=== PATIENT | male | born 1955 | race African-American/Black ===

== ENCOUNTER 2017-06-10 13:05 | Emergency (ER) | payer MEDICAID, OTHER ==
[~2017-06-10] VITALS: Ht 182.9 cm; Wt 85.0 kg
[~2017-06-10 13:05] MED LIST: ASPI81TA11 PO; LORTA5 PO; PERC5TAB12 PO
[2017-06-10] MEDS ORDERED: DIPHTH/TETANUS/ACEL PERTUSSIS (BOOSTER) 0.5 ML VIAL/PFS IM ONE ×2 (13:13→13:14)
[2017-06-10] MEDS ORDERED: SODIUM CHLORIDE 0.9% FLUSH 10 ML FLUSH IVF PRN (13:15)
[2017-06-10 13:21] VITALS: O2SAT 100
--- NOTE | 2017-06-10 13:27 | RADRPT ---
EXAM DATE/TIME: 06/10/2017 13:15 [facility] COMPARISON: CHEST SINGLE AP, February 08, 2016, 10:20. INDICATIONS : Trauma alert, fall off roof. MEDICAL HISTORY : None. SURGICAL HISTORY : None. ENCOUNTER: Initial ACUITY: 1 day PAIN SCORE: 0/10 LOCATION: Bilateral chest FINDINGS: A single view of the chest demonstrates the lungs to be symmetrically aerated without evidence of mas s, infiltrate or effusion. The cardiomediastinal contours are unremarkable. Osseous structures are intact. CONCLUSION: No acute disease. Jeremiah Byrne MD on June 10, 2017 at 13:25 Board Certified Radiologist. This report was verified electronically.
[2017-06-10 13:35] LABS: AUTOMATED NEUTROPHIL # 6.3 TH/MM3 (1.8-7.7); BASOPHIL % 0.5 % (0.0-2.0); EOSINOPHIL # 0.1 TH/MM3 (0-0.4); HEMATOCRIT 41.1 % (39.0-51.0); HEMOGLOBIN 14.2 GM/DL (13.0-17.0); LYMPH % 24.5 % (9.0-44.0); LYMPHOCYTE # 2.4 TH/MM3 (1.0-4.8); MEAN CELL VOLUME 93.9 FL (80.0-100.0); MEAN CORPUSCULAR HEMOGLOBIN 32.4 PG (27.0-34.0); MEAN CORPUSCULAR HGB CONC 34.5 % (32.0-36.0); MEAN PLATELET VOLUME 7.1 FL (7.0-11.0); MONO % 8.2 % (0.0-8.0); MONOCYTE # 0.8 TH/MM3 (0-0.9); NEUT % 65.8 % (16.0-70.0); PLATELET COUNT 406 TH/MM3 (150-450); RED BLOOD COUNT 4.38 MIL/MM3 (4.50-5.90); RED CELL DISTRIBUTION WIDTH 14.2 % (11.6-17.2); WHITE BLOOD COUNT 9.6 TH/MM3 (4.0-11.0)
--- NOTE | 2017-06-10 13:35 | RADRPT ---
EXAM DATE/TIME: 06/10/2017 13:15 [facility] COMPARISON: PELVIS AP ONLY, February 08, 2016, 10:18. INDICATIONS : Trauma alert, fall off roof. MEDICAL HISTORY : None. SURGICAL HISTORY : None. ENCOUNTER: Initial ACUITY: 1 day PAIN SCORE: 0/10 LOCATION: Bilateral pelvis FINDINGS: A single frontal view of the pelvis demonstrates no evidence of fracture. The bony pelvic ring is in tact. Bony mineralization is normal. The soft tissues are intact. CONCLUSION: No acute disease. Jeremiah Byrne MD on June 10, 2017 at 13:32 Board Certified Radiologist. This report was verified electronically.
[2017-06-10 13:48] LABS: PROTHROMBIN TIME - PATIENT 10.1 SEC (9.8-11.6)
[2017-06-10 14:00] VITALS: BP 136/82; PULSE 63; RESP 18; O2SAT 96
--- NOTE | 2017-06-10 14:06 | RADRPT ---
EXAM DATE/TIME: 06/10/2017 13:24 [facility] COMPARISON: No previous studies available for comparison. INDICATIONS : Trauma Alert- head pain due to fall off ladder. RADIATION DOSE: 55.53 CTDIvol (mGy) MEDICAL HISTORY : Unknown. SURGICAL HISTORY : Unknown. ENCOUNTER: Initial ACUITY: 1 day PAIN SCALE: 8/10 LOCATION: Bilateral cranial TECHNIQUE: Multiple contiguous axial images were obtained of the head. Using automated exposure control and adj ustment of the mA and/or kV according to patient size, radiation dose was kept as low as reasonably a chievable to obtain optimal diagnostic quality images. DICOM format image data is available electro nically for review and comparison. FINDINGS: CEREBRUM: The ventricles are normal for age. No evidence of midline shift, mass lesion, hemorrhage or acute in farction. No extra-axial fluid collections are seen. POSTERIOR FOSSA: The cerebellum and brainstem are intact. The 4th ventricle is midline. The cerebellopontine angle i s unremarkable. EXTRACRANIAL: The visualized portion of the orbits is intact. SKULL: The calvaria is intact. No evidence of skull fracture. CONCLUSION: Negative exam. No acute intracranial trauma or fracture.. Emil Rashid MD on June 10, 2017 at 14:02 Board Certified Radiologist. This report was verified electronically.
--- NOTE | 2017-06-10 14:08 | RADRPT ---
EXAM DATE/TIME: 06/10/2017 13:24 [facility] COMPARISON: No previous studies available for comparison. INDICATIONS : Trauma Alert- neck pain due to fall off ladder. RADIATION DOSE: 20.12 CTDIvol (mGy) MEDICAL HISTORY : None SURGICAL HISTORY : None. ENCOUNTER: Initial ACUITY: 1 day PAIN SCALE: 7/10 LOCATION: Bilateral neck region. TECHNIQUE: Volumetric scanning of the cervical spine was performed. Multiplanar reconstructions in the sagittal, coronal and oblique axial planes were performed. Using automated exposure control and adjustment o f the mA and/or kV according to patient size, radiation dose was kept as low as reasonably achievable to obtain optimal diagnostic quality images. DICOM format image data is available electronically f or review and comparison. FINDINGS: Sagittal and coronal reconstructions show normal flow-limiting disease from C4-5 through C6-7 some lo ss of disc height and predominantly anteriorly directed marginal spurs. Vertebral body heights are ma intained without fracture or listhesis. Spinal canal is widely patent. C2-C3: The bony spinal canal is normal in size. No evidence of disc bulge or herniation. The neural forami na are bilaterally patent. C3-C4: The bony spinal canal is normal in size. No evidence of disc bulge or herniation. The neural forami na are bilaterally patent. C4-C5: The bony spinal canal is normal in size. No evidence of disc bulge or herniation. The neural forami na are bilaterally patent. C5-C6: The bony spinal canal is normal in size. No evidence of disc bulge or herniation. The neural forami na are bilaterally patent. C6-C7: The bony spinal canal is normal in size. No evidence of disc bulge or herniation. The neural forami na are bilaterally patent. C7-T1: The bony spinal canal is normal in size. No evidence of disc bulge or herniation. The neural forami na are bilaterally patent. CONCLUSION: 1. Degenerative disc disease from C4-5 through C6 with loss of height and predominantly anteriorly di rected marginal spurs. 2. No fracture or listhesis. Spinal canal and neural foramina appear to be adequate throughout. Emil Rashid MD on June 10, 2017 at 14:04 Board Certified Radiologist. This report was verified electronically.
--- NOTE | 2017-06-10 14:13 | RADRPT ---
EXAM DATE/TIME: 06/10/2017 13:24 [facility] COMPARISON: No previous studies available for comparison. INDICATIONS : Trauma Alert- Nasal region pain due to fall off ladder. RADIATION DOSE: 64.35 CTDIvol (mGy) MEDICAL HISTORY : None SURGICAL HISTORY : None. ENCOUNTER: Initial ACUITY: 1 day PAIN SCORE: 9/10 LOCATION: Bilateral nasal. TECHNIQUE: Volumetric scanning of the facial bones was performed. Using automated exposure control and adjustme nt of the mA and/or kV according to patient size, radiation dose was kept as low as reasonably achiev able to obtain optimal diagnostic quality images. DICOM format image data is available electronicall y for review and comparison. FINDINGS: ORBITS: The orbital and infraorbital osseous structures are intact. The retroconal structures have a normal configuration. No radiopaque foreign bodies are seen. NASAL BONE: There may be a very small depressed fracture at the right para midline tip of the nasal bridge. Nasal bones are otherwise intact. ZYGOMATIC ARCHES: Symmetric without evidence of fracture. SINUSES: The maxillary, ethmoid and frontal sinuses are intact. No air-fluid levels seen. NASAL CAVITY: The nasal septum is intact and midline. The lacrimal ducts are intact. SOFT TISSUES: No radiopaque foreign bodies seen. No soft-tissue swelling is seen. INTRACRANIAL: No intracranial air seen. CRIBIFORM PLATE: Grossly intact. MISCELLANEOUS: Impacted left maxillary wisdom tooth crown and roots extending up into the base of the left maxillary antra. 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 CONCLUSION: 1. Possible punctate, depressed fracture through the inferior aspect of the right nasal bridge/ala. O sseous structures are otherwise intact 2. Impacted left maxillary wisdom teeth. 3. Multiple fractured teeth in the maxilla with a dentigerous cyst surrounding the root of what I bel ieve is the first bicuspid on the right. Emil Rashid MD on June 10, 2017 at 14:06 Board Certified Radiologist. This report was verified electronically.
--- NOTE | 2017-06-10 14:22 | RADRPT ---
EXAM DATE/TIME: 06/10/2017 13:31 [facility] COMPARISON: CT ABDOMEN & PELVIS W/O CONTRAST, February 08, 2016, 10:26. INDICATIONS : Trauma Alert- Lower hip pain due to fall off ladder. ORAL CONTRAST: No oral contrast ingested. RADIATION DOSE: 14.41 CTDIvol (mGy) ; Combined studies - Thorax/Abdomen/Pelvis MEDICAL HISTORY : None SURGICAL HISTORY : None. ENCOUNTER: Initial ACUITY: 1 day PAIN SCALE: 10/10 LOCATION: Left hip region. TECHNIQUE: Volumetric scanning of the abdomen and pelvis was performed. Using automated exposure control and ad justment of the mA and/or kV according to patient size, radiation dose was kept as low as reasonably achievable to obtain optimal diagnostic quality images. DICOM format image data is available electro nically for review and comparison. FINDINGS: LOWER LUNGS: The visualized lower lungs are clear. LIVER: Homogeneous density without lesion. There is no dilation of the biliary tree. No calcified gallston es. SPLEEN: Normal size without lesion. PANCREAS: Within normal limits. KIDNEYS: Normal in size and shape. There is no mass, stone, or hydronephrosis. ADRENAL GLANDS: Within normal limits. VASCULAR: There is no aortic aneurysm. BOWEL/MESENTERY: The stomach, small bowel, and colon demonstrate no acute abnormality. There is no free intraperitone al air or fluid. ABDOMINAL WALL: Within normal limits. RETROPERITONEUM: There is no lymphadenopathy. BLADDER: Distention of the urinary bladder. REPRODUCTIVE: Within normal limits. INGUINAL: There is no lymphadenopathy or hernia. MUSCULOSKELETAL: Old compression fracture superior plate of L1. Marked degenerative disc disease at L4-5 with endplate sclerosis. No acute osseous injury. CONCLUSION: 1. No acute fracture. 2. Old compression fractures of superior plate of L1 with degenerative disc disease at L4-5, loss of disc height and endplate sclerosis. 3. Distention of the urinary bladder. 4. No acute intraperitoneal or pelvic visceral trauma. Emil Rashid MD on June 10, 2017 at 14:15 Board Certified Radiologist. This report was verified electronically.
--- NOTE | 2017-06-10 14:27 | RADRPT ---
EXAM DATE/TIME: 06/10/2017 13:31 [facility] COMPARISON: No previous studies available for comparison. INDICATIONS : Trauma Alert- Chest pains due to fall off ladder. RADIATION DOSE: 14.41 CTDIvol (mGy) ; Combined studies - Thorax/Abdomen/Pelvis MEDICAL HISTORY : None SURGICAL HISTORY : None. ENCOUNTER: Initial ACUITY: 1 day PAIN SCALE: 6/10 LOCATION: Left chest TECHNIQUE: Volumetric scanning of the chest was performed. Using automated exposure control and adjustment of t he mA and/or kV according to patient size, radiation dose was kept as low as reasonably achievable to obtain optimal diagnostic quality images. DICOM format image data is available electronically for r eview and comparison. Follow-up recommendations for detected pulmonary nodules are based at a minimum on nodule size and pa tient risk factors according to Fleischner Society Guidelines. FINDINGS: LUNGS: There is no consolidation or pneumothorax. No concerning pulmonary nodule is visualized. Minimal bib asilar dependent atelectatic changes. PLEURAE: There is no pleural thickening or pleural effusion. MEDIASTINUM: Limited visualization of the mediastinal structures without IV contrast. No mediastinal hematoma iden tified. The proximal descending thoracic aorta is aneurysmal at 4.1 cm. There is no mediastinal or h ilar lymphadenopathy. AXILLAE: Within normal limits. No lymphadenopathy. MUSCULOSKELETAL: Within normal limits for patient age. MISCELLANEOUS: The visualized upper abdominal organs demonstrate no acute abnormality. CONCLUSION: 1. No acute fracture. 2. Limited visualization of the mediastinal structures without IV contrast. No mediastinal hematoma. 3. Proximal descending thoracic aorta is mildly aneurysmal at 4.1 cm. 4. Except for some minimal dependent atelectatic changes, the lungs are clear. Emil Rashid MD on June 10, 2017 at 14:20 Board Certified Radiologist. This report was verified electronically.
[2017-06-10] MEDS ORDERED: LIDOCAINE 1%/EPINEPHrine 1:100,000 SOLN 20 ML VIAL INFIL ONE (14:30)
--- NOTE | 2017-06-10 15:29 | PD ---
HPI Chief Complaint: Fall Time Seen by Provider: 13:08 Travel History International Travel<30 days: No Contact w/Intl Traveler<30days: No Traveled to known affect area: No History of Present Illness HPI 61 y/o male presents status post fall off a roof. He had loss of consciousness. He states he landed on an ac compressor fpc down. He sustained lacerations to his face. He states he has pain kind all over. He denies being on any blood thinner medications. He denies any other concurrent complaints. He presents through triage. PFSH Past Medical History Hx Anticoagulant Therapy: No Cancer: No Cardiovascular Problems: Yes (PT STATES HE HAS HAD 2 HEART ATTACKS) Diabetes: No Diminished Hearing: No Glaucoma: No Hepatitis: No Hiatal Hernia: No Hypertension: No Medical other: Yes (ANEURYSM ) Respiratory: No Immunizations Current: No Myocardial Infarction: Yes Thyroid Disease: No Tetanus Vaccination: Never Vaccinated Influenza Vaccination: No Past Surgical History Surgical History: No Previous Surgery Social History Alcohol Use: Yes (occ) Tobacco Use: Yes Substance Use: No Allergies-Medications (Allergen,Severity, Reaction): Coded Allergies: diatrizoate meglumine (Unverified Allergy, Unknown, CREATES SORES, ) gadobenic acid (Unverified Allergy, Unknown, CREATES SORES, 06/10/17) gadodiamide (Unverified Allergy, Unknown, CREATES SORES, 06/10/17) gadoteridol (Unverified Allergy, Unknown, CREATES SORES, 06/10/17) iodixanol (Unverified Allergy, Unknown, CREATES SORES, 06/10/17) iohexol (Unverified Allergy, Unknown, CREATES SORES, 06/10/17) penicillin G (Unverified Allergy, Unknown, NAUSEA/VOMITING, 06/10/17) Reported Meds & Prescriptions Reported Meds & Active Scripts Active No Active Prescriptions or Reported Medications Review of Systems Except as stated in HPI: all other systems reviewed are Neg Physical Exam Narrative GENERAL: Well-nourished, well-developed patient. SKIN: Warm and dry. HEAD: Normocephalic and lacerations noted to face EYES: No injection or drainage. ENT: No nasal drainage noted. NECK: Supple, trachea midline. C-collar placed CARDIOVASCULAR: Regular rate and rhythm RESPIRATORY: Breath sounds equal bilaterally. No accessory muscle use. GASTROINTESTINAL: Abdomen soft, mild diffusely tender, nondistended. EXTREMITIES: No edema. No specific joint pain BACK: Nontender without obvious deformity. NEUROLOGICAL: Awake and alert. Motor and sensory grossly within normal limits. Normal speech. Data Data Last Documented VS Vital Signs Date Time Temp Pulse Resp B/P (MAP) Pulse Ox O2 Delivery O2 Flow Rate FiO2 06/10/17 14:00 96 Room Air 06/10/17 14:00 63 18 136/82 (100) 21 Orders Orders I-Stat Profile (06/10/17 13:08) I-Stat Creatinine (06/10/17 13:08) Complete Blood Count With Diff (06/10/17 13:08) Prothrombin Time / Inr (Pt) (06/10/17 13:08) Act Partial Throm Time (Ptt) (06/10/17 13:08) Type And Screen (06/10/17 13:08) Alcohol (Ethanol) (06/10/17 13:08) Chest, Single Ap (06/10/17 13:08) Pelvis, Ap Only (Routine) (06/10/17 13:08) Ct Brain W/O Iv Contrast(Rout) (06/10/17 13:08) Ct Cerv Spine W/O Contrast (06/10/17 13:08) Ct Facial Bones W/O Iv Cont (06/10/17 13:08) Apply Cervical Collar (06/10/17 13:08) Iv Access Insert/Monitor (06/10/17 13:08) Ecg Monitoring (06/10/17 13:08) Oximetry (06/10/17 13:08) Sodium Chloride 0.9% Flush (Ns Flush) (06/10/17 13:15) Fnaq-Ccm-Xqlrvg (Booster) Inj (Boostrix (06/10/17 13:13) Ekxv-Tkj-Xawrwe (Booster) Inj (Boostrix (06/10/17 13:14) Ct Abd/Pel W/O Iv Contrast (06/10/17 13:08) Ct Thorax/ Chest Wo Iv Contras (06/10/17 13:08) Collar Ola (06/10/17 ) Trauma Office Use Only (06/10/17 14:09) Lidocai-Epi 1%-1:100,000 Inj (Xylocaine- (06/10/17 14:30) Lidocaine 1% Inj (50 Ml) (Xylocaine 1% I (06/10/17 15:30) Lidocaine 2% Inj (Xylocaine 2% Inj) (06/10/17 15:30) Ed Discharge Order (06/10/17 16:17) Labs Laboratory Tests Test 06/10/17 13:08 White Blood Count 9.6 TH/MM3 Red Blood Count 4.38 MIL/MM3 Hemoglobin 14.2 GM/DL Bedside Hemoglobin 14.3 G/DL Hematocrit 41.1 % Bedside Hematocrit 42.0 % Mean Corpuscular Volume 93.9 FL Mean Corpuscular Hemoglobin 32.4 PG Mean Corpuscular Hemoglobin Concent 34.5 % Red Cell Distribution Width 14.2 % Platelet Count 406 TH/MM3 Mean Platelet Volume 7.1 FL Neutrophils (%) (Auto) 65.8 % Lymphocytes (%) (Auto) 24.5 % Monocytes (%) (Auto) 8.2 % Eosinophils (%) (Auto) 1.0 % Basophils (%) (Auto) 0.5 % Neutrophils # (Auto) 6.3 TH/MM3 Lymphocytes # (Auto) 2.4 TH/MM3 Monocytes # (Auto) 0.8 TH/MM3 Eosinophils # (Auto) 0.1 TH/MM3 Basophils # (Auto) 0.0 TH/MM3 CBC Comment DIFF FINAL Differential Comment Prothrombin Time 10.1 SEC Prothromb Time International Ratio 1.0 RATIO Activated Partial Thromboplast Time 28.1 SEC Bedside Sodium 140 MMOL/L Bedside Potassium 3.7 MMOL/L Bedside Chloride 103 MMOL/L Bedside Blood Urea Nitrogen 8 MG/DL Bedside Creatinine 0.8 MG/DL Bedside Glucose 83 MG/DL Ethyl Alcohol Level LESS THAN 3 MG/DL [facility] Medical Decision Making Medical Screen Exam Complete: Yes Emergency Medical Condition: Yes Medical Record Reviewed: Yes (past history confirmed) Interpretation(s) CBC & BMP Diagram 06/10/17 13:08 Last 24 hours Impressions Pelvis X-Ray 06/10/17 1308 Signed Impressions: Service Date/Time: May 13:15 - CONCLUSION: No acute disease. Jeremiah Byrne MD Maxillofacial CT 06/10/17 1308 Signed Impressions: Service Date/Time: May 13:24 - CONCLUSION: 1. Possible punctate, depressed fracture through the inferior aspect of the right nasal bridge/ala. Osseous structures are otherwise intact 2. Impacted left maxillary wisdom teeth. 3. Multiple fractured teeth in the maxilla with a dentigerous cyst surrounding the root of what I believe is the first bicuspid on the right. Emil Rashid MD Head CT 06/10/171307 Signed Impressions: Service Date/Time: May 13:24 - CONCLUSION: Negative exam. No acute intracranial trauma or fracture.. Emil Rashid MD Chest X-Ray 06/10/171307 Signed Impressions: Service Date/Time: May 13:15 - CONCLUSION: No acute disease. Jeremiah Byrne MD Chest CT 06/10/171307 Signed Impressions: Service Date/Time: May 13:31 - CONCLUSION: 1. No acute fracture. 2. Limited visualization of the mediastinal structures without IV contrast. No mediastinal hematoma. 3. Proximal descending thoracic aorta is mildly aneurysmal at 4.1 cm. 4. Except for some minimal dependent atelectatic changes, the lungs are clear. Emil Rashid MD Cervical Spine CT 06/10/171307 Signed Impressions: Service Date/Time: May 13:24 - CONCLUSION: 1. Degenerative disc disease from C4-5 through C6 with loss of height and predominantly anteriorly directed marginal spurs. 2. No fracture or listhesis. Spinal canal and neural foramina appear to be adequate throughout. Emil Rashdi MD Abdomen/Pelvis CT 06/10/171307 Signed Impressions: Service Date/Time: May 13:31 - CONCLUSION: 1. No acute fracture. 2. Old compression fractures of superior plate of L1 with degenerative disc disease at L4-5, loss of disc height and endplate sclerosis. 3. Distention of the urinary bladder. 4. No acute intraperitoneal or pelvic visceral trauma. Emil Rashid MD Differential Diagnosis Fracture, strain, laceration Narrative Course Patient fell from roof and given age will make level II trauma alert. Emergency department E-FAST was performed with patient consent. The curvilinear probe was used in the right upper quadrant/Morison's pouch, suprapubic, left upper quadrant/spleenorenal space, epigastric, parasternal long axis and anterior bilateral chest wall. There was no evidence of peritoneal free fluid, pericardial effusion, or pneumothorax. I stats reviewed without emergent process. Patient went to CT and found to have nasal fracture which was discuss with cranial facial who states patient can follow-up outpatient. PA to repair lacerations. Patient will need to follow outpatient with dentist for dental fracture. Patient updated and Patient denies any new complaints and states that they are feeling better. Patient happy with care, all questions answered. Patient knows that follow up is incumbent on them and to return to the emergency room immediately if new or worsening symptoms develop. Patient given strict return precautions, vitals reviewed and are normal, agrees to further workup as an outpatient. Steady gait Physician Communication Physician Communication dr daigle states go home and follow up Diagnosis Primary Impression: Nasal bone fracture Qualified Codes: S02.2XXA - Fracture of nasal bones, initial encounter for closed fracture Additional Impressions: Face lacerations Qualified Codes: S01.81XA - Laceration without foreign body of other part of head, initial encounter Tooth fracture Qualified Codes: S02.5XXA - Fracture of tooth (traumatic), initial encounter for closed fracture Referrals: Dentist call for appointment Plastic Surgeon call for appointment Patient Instructions: General Instructions Additional Instructions: Tylenol as needed, have sutures removed in 5 days, return as needed Med/Other Pt SpecificInfo: No Change to Meds Scripts No Active Prescriptions or Reported Meds Disposition: 01 DISCHARGE HOME Condition: Stable Nicole Hurley MD Jun 10, 2017 15:29
[2017-06-10] MEDS ORDERED: LIDOCAINE HCL 1% 50 ML VIAL INFIL ONE (15:30)
[2017-06-10] MEDS ORDERED: LIDOCAINE HCL 2% 20 ML VIAL INFIL ONE (15:30)
--- NOTE | 2017-06-10 16:05 | PD ---
Physical Exam Date Seen by Provider: Jun 10, 2017 Time Seen by Provider: 16:04 Narrative I was asked by Dr. Hurley to repair laceration the patient's nose, upper lip. Please see her documentation for full history and physical. Data Data Last Documented VS Vital Signs Date Time Temp Pulse Resp B/P (MAP) Pulse Ox O2 Delivery O2 Flow Rate FiO2 06/10/17 14:00 96 Room Air 06/10/17 14:00 63 18 136/82 (100) 21 Orders Orders I-Stat Profile (06/10/17 13:08) I-Stat Creatinine (06/10/17 13:08) Complete Blood Count With Diff (06/10/17 13:08) Prothrombin Time / Inr (Pt) (06/10/17 13:08) Act Partial Throm Time (Ptt) (06/10/17 13:08) Type And Screen (06/10/17 13:08) Alcohol (Ethanol) (06/10/17 13:08) Chest, Single Ap (06/10/17 13:08) Pelvis, Ap Only (Routine) (06/10/17 13:08) Ct Brain W/O Iv Contrast(Rout) (06/10/17 13:08) Ct Cerv Spine W/O Contrast (06/10/17 13:08) Ct Facial Bones W/O Iv Cont (06/10/17 13:08) Apply Cervical Collar (06/10/17 13:08) Iv Access Insert/Monitor (06/10/17 13:08) Ecg Monitoring (06/10/17 13:08) Oximetry (06/10/17 13:08) Sodium Chloride 0.9% Flush (Ns Flush) (06/10/17 13:15) Wtzb-Cqt-Qubmdx (Booster) Inj (Boostrix (06/10/17 13:13) Mnvd-Ugw-Ywiuki (Booster) Inj (Boostrix (06/10/17 13:14) Ct Abd/Pel W/O Iv Contrast (06/10/17 13:08) Ct Thorax/ Chest Wo Iv Contras (06/10/17 13:08) Collar Gillespie (06/10/17 ) Trauma Office Use Only (06/10/17 14:09) Lidocai-Epi 1%-1:100,000 Inj (Xylocaine- (06/10/17 14:30) Lidocaine 1% Inj (50 Ml) (Xylocaine 1% I (06/10/17 15:30) Lidocaine 2% Inj (Xylocaine 2% Inj) (06/10/17 15:30) Labs Laboratory Tests Test 06/10/17 13:08 White Blood Count 9.6 TH/MM3 Red Blood Count 4.38 MIL/MM3 Hemoglobin 14.2 GM/DL Bedside Hemoglobin 14.3 G/DL Hematocrit 41.1 % Bedside Hematocrit 42.0 % Mean Corpuscular Volume 93.9 FL Mean Corpuscular Hemoglobin 32.4 PG Mean Corpuscular Hemoglobin Concent 34.5 % Red Cell Distribution Width 14.2 % Platelet Count 406 TH/MM3 Mean Platelet Volume 7.1 FL Neutrophils (%) (Auto) 65.8 % Lymphocytes (%) (Auto) 24.5 % Monocytes (%) (Auto) 8.2 % Eosinophils (%) (Auto) 1.0 % Basophils (%) (Auto) 0.5 % Neutrophils # (Auto) 6.3 TH/MM3 Lymphocytes # (Auto) 2.4 TH/MM3 Monocytes # (Auto) 0.8 TH/MM3 Eosinophils # (Auto) 0.1 TH/MM3 Basophils # (Auto) 0.0 TH/MM3 CBC Comment DIFF FINAL Differential Comment Prothrombin Time 10.1 SEC Prothromb Time International Ratio 1.0 RATIO Activated Partial Thromboplast Time 28.1 SEC Bedside Sodium 140 MMOL/L Bedside Potassium 3.7 MMOL/L Bedside Chloride 103 MMOL/L Bedside Blood Urea Nitrogen 8 MG/DL Bedside Creatinine 0.8 MG/DL Bedside Glucose 83 MG/DL Ethyl Alcohol Level LESS THAN 3 MG/DL [facility] Medical Record Reviewed: Yes Supervised Visit with HUBERT: No Procedures Procedure Narrative LACERATION LOCATION: Nose LENGTH: 4 cm NUMBER OF STITCHES/NOEMY: 6 simple interrupted sutures REPAIR: The area of the laceration was prepped with Betadine and sterilely draped. The laceration was infiltrated with .1% lidocainehe wound was copiously irrigated and explored without evidence of foreign body, tendon injury or neurovascular injury. The wound was closed using 5-0 Prolene. This was a single layer repair. A sterile dressing was applied. The patient was advised to keep the dressing clean and dry. Patient tolerated the procedure well. LACERATION LOCATION: Upper lip LENGTH: 2 cm through and through laceration NUMBER OF STITCHES/NOEMY: 4 Prolene 5-0, 3 Vicryl 5-0 simple interrupted sutures REPAIR: The area of the laceration was prepped with Betadine and sterilely draped. The laceration was infiltrated with 1% lidocaine. The wound was copiously irrigated and explored without evidence of foreign body, tendon injury or neurovascular injury. The wound was closed using 5-0 Prolene and 5-0 Vicryl. This was a 2 layer repair. A sterile dressing was applied. The patient was advised to keep the dressing clean and dry. Patient tolerated the procedure well. Diagnosis Primary Impression: Nasal bone fracture Qualified Codes: S02.2XXA - Fracture of nasal bones, initial encounter for closed fracture Additional Impressions: Tooth fracture Qualified Codes: S02.5XXA - Fracture of tooth (traumatic), initial encounter for closed fracture Face lacerations Qualified Codes: S01.81XA - Laceration without foreign body of other part of head, initial encounter Scripts No Active Prescriptions or Reported Papas Stefanie Marr Jun 10, 2017 16:05
== END 2017-06-10 17:00 | disposition home or self-care (01) ==
LOC: NEPE 13:05 → NEPI 17:00
DX: S02.2XXA Fracture of nasal bones, initial encounter for closed fracture (principal); S01.511A Laceration without foreign body of lip, initial encounter; S01.21XA Laceration without foreign body of nose, initial encounter; S02.5XXA Fracture of tooth (traumatic), initial encounter for closed fracture; I25.2 Old myocardial infarction; Z23 Encounter for immunization; Z72.0 Tobacco use; Z88.0 Allergy status to penicillin; W17.89XA Other fall from one level to another, initial encounter
CPT/HCPCS: 12013; 12051; 70450; 70486; 71010; 71250; 72125; 72170; 74176; 80307; 82435; 82565; 82947; 84132; 84295; 84520; 85025; 85610; 85730; 86850; 86900; 86901; 90471; 90715; 99285; L0150; 12014

== ENCOUNTER 2017-06-16 12:38 | Emergency (ER) | payer SELFPAY ==
[~2017-06-16] VITALS: Ht 182.9 cm; Wt 56.8 kg
[2017-06-16 12:40] VITALS: BP 124/69; PULSE 69; RESP 16; TEMP 97.9; O2SAT 98
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
[2017-06-16] MEDS ORDERED: AUGM875T3 PO (13:26)
[2017-06-16] MEDS ORDERED: TRAM50TA PO ×3 (13:26→13:33)
[2017-06-16] MEDS ORDERED: traMADol HCL 50 MG TAB PO ONE (13:30)
== END 2017-06-16 13:40 | disposition home or self-care (01) ==
LOC: NEPK 12:38
DX: J01.00 Acute maxillary sinusitis, unspecified (principal); S02.2XXD Fracture of nasal bones, subsequent encounter for fracture with routine healing; S02.5XXD Fracture of tooth (traumatic), subsequent encounter for fracture with routine healing; W13.2XXD Fall from, out of or through roof, subsequent encounter; F17.200 Nicotine dependence, unspecified, uncomplicated; Z48.02 Encounter for removal of sutures
CPT/HCPCS: 99284

== ENCOUNTER 2017-06-28 14:54 | Emergency (ER) | payer OTHER ==
[~2017-06-28] VITALS: Ht 182.9 cm; Wt 61.4 kg
[~2017-06-28 14:54] MED LIST changes: -ASPI81TA11 PO; +AUGM875T3 PO; -LORTA5 PO; -PERC5TAB12 PO; +TRAM50TA PO
[2017-06-28 14:56] VITALS: BP 124/58; PULSE 71; RESP 16; TEMP 97.6; O2SAT 99
[2017-06-28] MEDS ORDERED: DICL75TA PO (15:55)
[2017-06-28] MEDS ORDERED: BACL10TA PO (15:55)
[2017-06-28] MEDS ORDERED: ORPHENADRINE INJ 60 MG/2 ML AMP IM ONE (16:00)
[2017-06-28] MEDS ORDERED: KETOROLAC TROMETHAMINE 60 MG/2 ML (IM) VIAL IM ONE (16:00)
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
== END 2017-06-28 17:01 | disposition home or self-care (01) ==
LOC: NEPA 14:54
DX: M54.17 Radiculopathy, lumbosacral region (principal); Z86.79 Personal history of other diseases of the circulatory system; W13.2XXD Fall from, out of or through roof, subsequent encounter; Y99.0 Civilian activity done for income or pay
CPT/HCPCS: 96372; 99284; J1885; J2360